=== PATIENT | female | born 1960 | race Caucasian/White ===

== ENCOUNTER → 2017-07-16 | Outpatient (CLI) | payer BC ==
[~2017-07-16] MED LIST: ASCO10003 PO; ASPI81TA28 PO; CALC500C70 PO; CHOL1CAP30 PO; METF-384 PO; PYRI100T4 PO; REPA0.5T PO; SITA100T3 PO; TAMO20TA47 PO
== END | disposition home or self-care (01) ==
LOC: C.PAPS 16:13
PROVIDERS: ATTEND Obstetrics & Gynecology
DX: Z01.419 Encounter for gynecological examination (general) (routine) without abnormal findings (principal)